=== PATIENT | female | born 1990 | race Caucasian/White ===

== ENCOUNTER 2019-01-05 22:04 | Observation (INO) ==
[2019-01-06 00:35] LABS: Bilirubin,Urine Moderate (Negative); Blood,Urine Negative (Negative); Clarity,Urine Cloudy (Clear); Glucose,Urine (UA) Normal (Normal); Ketones,Urine Trace mg/dL (Negative); Leukocyte Esterase,Urine Small (Negative); Nitrite,Urine Positive (Negative); Protein,Urine 100 mg/dL (Neg-Trace); Specific Gravity,Urine 1.027 (1.010-1.025)
[2019-01-06 00:37] LABS: Bacteria,Urine Many per hpf (None-Few); Squamous Epithelial Cell,Urine Many per lpf (None-Few); WBC,Urine 15-30 per hpf (0-3)
[2019-01-06 00:39] LABS: Color,Urine Amber (Yellow)
[2019-01-06 01:07] LABS: Calcium Oxalate Crystals,Urine Present; Hyaline Casts,Urine Moderate per lpf (None-Few); Mucus,Urine Many (Few)
--- NOTE | 2019-01-06 01:10 | Emergency Department Note ---
Disposition Clinical Impression: Hypokalemia, Elevated CK UTI (urinary tract infection) Qualifiers: Urinary tract infection type: site unspecified Hematuria presence: without hematuria Qualified Code(s): N39.0 - Urinary tract infection, site not specified Disposition: Admitted As Inpatient Condition: Good Time of Disposition: 05:14 General Adult HPI - General Chief complaint: ED General Medical Stated complaint: THOUGHT SHE TOOK METH/BUT DOESNT KNOW Time Seen by Provider: 01/05/19 23:23 Source: patient Nursing Notes Reviewed: Yes Vital Signs Reviewed: Yes - History of Present Illness HPI Narrative: 29-year-old female with reported history of methamphetamine abuse presents with concern with possible overdose. She arrived via squad. Patient states that she is a daily medications are, however squad gave her what she described as "fake" meth. Nursing reports pt felt cold. She states she was using to get high denies any SI. She denies any injury or trauma, recent illness. Pain Scale: 7 - Related Data Allergies Allergy/AdvReac Type Severity Reaction Status Date / Time No Known Allergies Allergy Verified 01/05/19 22:27 All systems ED: reviewed and negative except as stated. Review of Systems: As Per HPI Constitutional: Reports: as per HPI, fever Cardiovascular: Denies: chest pain, palpitations Respiratory: Denies: dyspnea Gastrointestinal: Denies: abdominal pain, nausea, vomiting Genitourinary: Reports: as per HPI, dysuria Musculoskeletal: Denies: back pain Integumentary: Denies: rash Neurological: Denies: headache, weakness, numbness, paresthesias Psychiatric: Denies: suicidal thoughts Endocrine: Denies: fatigue Hematological/Lymphatic: Denies: lymphadenopathy Allergic/Immunologic: Denies: facial swelling Past Medical History - Past Medical History Medical history: Reports: no medical history - Social History Smoking Status: Current every day smoker Drug use: Reports: methamphetamine, IV Drug Use Physical Exam - General Limitations: no limitations General appearance: in no apparent distress, other (Somnolent, but arousable) - Head Head exam: atraumatic, normocephalic - Eye Eye exam: Present: EOMI - Expanded Eye Exam Eyelids: bilateral: normal inspection Pupils: Bilateral: regular, round, reactive - ENT ENT exam: normal exam, normal oropharynx, mucous membranes moist - Neck Neck exam: Present: full ROM. Absent: lymphadenopathy - Chest Chest inspection: Absent: symmetric chest wall rise - Respiratory Respiratory exam: Absent: respiratory distress - Cardiovascular Cardiovascular exam: Present: normal rhythm, tachycardia - Abdominal Exam Abdominal exam: Present: soft, Non-Tender - Extremities Exam Extremities exam: Present: full ROM, normal capillary refill - Back Exam Back exam: Present: full ROM. Absent: CVA tenderness (R), CVA tenderness (L) - Neurological Exam Neurological exam: Present: alert - Psychiatric Psychiatric exam: Present: normal affect, normal mood - Skin Skin exam: Present: warm, dry, intact, normal color. Absent: rash, cyanosis, diaphoresis Course Course Narrative: Patient seen and examined. she appears somnolent, but is arousable. She is alert and oriented 3. Exam shows no evidence of trauma however she appears disheveled, dirty feet. Noted IV drug use on her forearms, do concerning signs of abscess. Tachycardic, EKG shows sinus tachycardia. Good oxygen saturation. Patient unsure of her substance that she utilizes. No squad report available at this time. Will plan for narcan, accuchek, and reassessment. - Reevaluation(s) Reevaluation #1: Accu-Chek still pending. Patient did receive 2 mg of intranasal Narcan, with no noted change. Repeat assessment shows that she does have an oral temperature 100.6. She remains tachycardic. Urinalysis shows evidence urinary tract infection. In discussion with patient she does mention that she has dysuria when I ask her. She denies any back pain, abdominal pain, nausea, vomiting UTI and vitals Concerning for sepsis, iv abx, fluids. We will plan for sepsis workup, CT head for somnolence. Patient discussed with attending Dr. Julianna Samayoa who agreed with workup, and also advised for CTA for evaluation septic emboli, and CT abd/pelvis for possible pyelnonephritis. She agreed with work up and dispo. Time: 01:26 Reevaluation #2: Head CT, CT unremarkable. CT abdomen and pelvis shows nonspecific fat stranding bilateral adrenal glands, nonobstructing nephrolithiasis. Vitals remained stable. She does have an elevated CPK, and significant urinary tract infection. Remained somnolent, but is arousable and answers questions quickly she is awake. I do not feel she will reliably take her medicatins as an outpatient. We will plan for admission for UTI, rhabdomyolysis, hypokalemia.. Time: 04:52 Reevaluation #3: Patient discussed with hospitalist Dr. Stearns, who agreed to review the chart and call me back. @05:13 Discussed again with hospitalist Dr. Stearns who agreed to accept patient for uti, elevated CK and , hypokalemia. Time: 05:00 Vital Signs Temperature 97.7 F 01/05/19 22:25 Pulse Rate 111 01/05/19 22:25 Respiratory Rate 18 01/05/19 22:25 Blood Pressure 109/60 01/05/19 22:25 O2 Sat by Pulse Oximetry 97 01/05/19 22:25 Temperature 99.6 F 01/06/19 06:18 Pulse Rate 92 01/06/19 06:18 Respiratory Rate 16 01/06/19 06:18 Blood Pressure 97/63 01/06/19 06:18 O2 Sat by Pulse Oximetry 98 01/06/19 06:18 Oxygen Delivery Oxygen Delivery Room Air Medical Decision Making - MDM Narrative Medical decision making narrative: Abdomen/Pelvis CT 01/06/19 01:21 IMPRESSION: There is nonspecific fat stranding surrounding both adrenal glands. Nonobstructing right-sided nephrolithiasis. D/ / Keena Yu MD / Keena Yu MD Interpreting Provider: Keena Yu MD Chest CTA 01/06/19 01:21 IMPRESSION: No evidence of pulmonary embolism or acute pulmonary abnormality. D/ / Keena Yu MD / Keena Yu MD Interpreting Provider: Keena Yu MD Head CT 01/06/19 01:21 IMPRESSION: No acute intracranial abnormality. D/ / Keena Yu MD / Keena Yu MD Interpreting Provider: Keena Yu MD Laboratory Tests 01/06/19 01/06/19 01/06/19 00:26 00:26 00:26 WBC RBC Hgb Hct MCV MCH MCHC RDW Plt Count MPV Immature Gran % Seg Neutrophils % Lymphocytes % Monocytes % Eosinophils % Basophils % Neutrophils # Lymphocytes # Monocytes # Eosinophils # Basophils # Sodium Potassium Chloride Carbon Dioxide BUN Creatinine Est GFR ( Amer) Est GFR (Non-Af Amer) BUN/Creatinine Ratio Glucose POC Glucose Calculated Osmolality Lactic Acid Calcium Total Bilirubin Direct Bilirubin Indirect Bilirubin AST ALT Alkaline Phosphatase Ammonia Creatine Kinase Serum Total Protein Albumin Globulin Albumin/Globulin Ratio Urine Color Kathy A Urine Clarity Cloudy A Urine pH 6.0 Ur Specific Constable 1.027 H Urine Protein 100 H Urine Glucose (UA) Normal Urine Ketones Trace H Urine Blood Negative Urine Nitrite Positive A Urine Bilirubin Moderate H Urine Urobilinogen 2.0 H Ur Leukocyte Esterase Small H Urine Microscopic RBC 3-5 H Urine Microscopic WBC 15-30 H Ur Squamous Epith Cells Many H Calcium Oxalate Crystal Present Urine Bacteria Many H Hyaline Casts Moderate H Urine Mucus Many H Ur Culture Indicated? YES A Urine Test Negative Urine Opiates Screen Positive H Ur Buprenorphine Scrn Negative Ur Barbiturates Screen Negative Ur Phencyclidine Scrn Negative Ur Amphetamines Screen Positive H U Benzodiazepines Scrn Negative Urine Cocaine Screen Negative U Marijuana (THC) Screen Negative Ur Drug Screen Interp See Below Ethyl Alcohol Hepatitis A IgM Ab Hep Bs Antigen Hep B Core IgM Ab 01/06/19 01/06/19 01/06/19 01:54 02:28 02:28 WBC 11.0 RBC 4.14 Hgb 12.6 Hct 37.9 MCV 91.5 MCH 30.4 MCHC 33.2 RDW 12.9 Plt Count 233 MPV 10.4 Immature Gran % 0.5 Seg Neutrophils % 94.4 Lymphocytes % 3.6 Monocytes % 1.2 Eosinophils % 0.2 Basophils % 0.1 Neutrophils # 10.4 H Lymphocytes # 0.4 L Monocytes # 0.1 Eosinophils # 0.0 Basophils # 0.0 Sodium 141 Potassium 2.8 L Chloride 108 H Carbon Dioxide 24 BUN 11 Creatinine 0.83 Est GFR ( Amer) > 60 Est GFR (Non-Af Amer) > 60 BUN/Creatinine Ratio 13 Glucose 97 POC Glucose 114 H Calculated Osmolality 291 Lactic Acid Calcium 8.9 Total Bilirubin 2.3 H Direct Bilirubin 1.5 H Indirect Bilirubin 0.8 AST 67 H ALT 67 H Alkaline Phosphatase 143 H Ammonia Creatine Kinase Serum Total Protein 6.5 Albumin 3.6 Globulin 2.9 Albumin/Globulin Ratio 1.2 Urine Color Urine Clarity Urine pH Ur Specific Constable Urine Protein Urine Glucose (UA) Urine Ketones Urine Blood Urine Nitrite Urine Bilirubin Urine Urobilinogen Ur Leukocyte Esterase Urine Microscopic RBC Urine Microscopic WBC Ur Squamous Epith Cells Calcium Oxalate Crystal Urine Bacteria Hyaline Casts Urine Mucus Ur Culture Indicated? Urine Test Urine Opiates Screen Ur Buprenorphine Scrn Ur Barbiturates Screen Ur Phencyclidine Scrn Ur Amphetamines Screen U Benzodiazepines Scrn Urine Cocaine Screen U Marijuana (THC) Screen Ur Drug Screen Interp Ethyl Alcohol Hepatitis A IgM Ab Hep Bs Antigen Hep B Core IgM Ab 01/06/19 01/06/19 01/06/19 02:28 02:28 02:28 WBC RBC Hgb Hct MCV MCH MCHC RDW Plt Count MPV Immature Gran % Seg Neutrophils % Lymphocytes % Monocytes % Eosinophils % Basophils % Neutrophils # Lymphocytes # Monocytes # Eosinophils # Basophils # Sodium Potassium Chloride Carbon Dioxide BUN Creatinine Est GFR ( Amer) Est GFR (Non-Af Amer) BUN/Creatinine Ratio Glucose POC Glucose Calculated Osmolality Lactic Acid 1.6 Calcium Total Bilirubin Direct Bilirubin Indirect Bilirubin AST ALT Alkaline Phosphatase Ammonia Creatine Kinase 552 H Serum Total Protein Albumin Globulin Albumin/Globulin Ratio Urine Color Urine Clarity Urine pH Ur Specific Constable Urine Protein Urine Glucose (UA) Urine Ketones Urine Blood Urine Nitrite Urine Bilirubin Urine Urobilinogen Ur Leukocyte Esterase Urine Microscopic RBC Urine Microscopic WBC Ur Squamous Epith Cells Calcium Oxalate Crystal Urine Bacteria Hyaline Casts Urine Mucus Ur Culture Indicated? Urine Test Urine Opiates Screen Ur Buprenorphine Scrn Ur Barbiturates Screen Ur Phencyclidine Scrn Ur Amphetamines Screen U Benzodiazepines Scrn Urine Cocaine Screen U Marijuana (THC) Screen Ur Drug Screen Interp Ethyl Alcohol Hepatitis A IgM Ab Nonreactive Hep Bs Antigen Nonreactive Hep B Core IgM Ab Nonreactive 01/06/19 01/06/19 04:19 04:19 WBC RBC Hgb Hct MCV MCH MCHC RDW Plt Count MPV Immature Gran % Seg Neutrophils % Lymphocytes % Monocytes % Eosinophils % Basophils % Neutrophils # Lymphocytes # Monocytes # Eosinophils # Basophils # Sodium Potassium Chloride Carbon Dioxide BUN Creatinine Est GFR ( Amer) Est GFR (Non-Af Amer) BUN/Creatinine Ratio Glucose POC Glucose Calculated Osmolality Lactic Acid Calcium Total Bilirubin Direct Bilirubin Indirect Bilirubin AST ALT Alkaline Phosphatase Ammonia 38 Creatine Kinase Serum Total Protein Albumin Globulin Albumin/Globulin Ratio Urine Color Urine Clarity Urine pH Ur Specific Constable Urine Protein Urine Glucose (UA) Urine Ketones Urine Blood Urine Nitrite Urine Bilirubin Urine Urobilinogen Ur Leukocyte Esterase Urine Microscopic RBC Urine Microscopic WBC Ur Squamous Epith Cells Calcium Oxalate Crystal Urine Bacteria Hyaline Casts Urine Mucus Ur Culture Indicated? Urine Test Urine Opiates Screen Ur Buprenorphine Scrn Ur Barbiturates Screen Ur Phencyclidine Scrn Ur Amphetamines Screen U Benzodiazepines Scrn Urine Cocaine Screen U Marijuana (THC) Screen Ur Drug Screen Interp Ethyl Alcohol < 10 Hepatitis A IgM Ab Hep Bs Antigen Hep B Core IgM Ab - Lab Data Lab results reviewed: Yes I reviewed the patient's lab results. Result diagrams: 01/06/19 02:28 01/06/19 02:28 Lab Results 01/06/19 01/06/19 01/06/19 Range/Units 00:26 00:26 00:26 WBC (4.3-11.1) K/mcL RBC (3.82-4.97) M/mcL Hgb (11.5-15.4) g/dL Hct (35.3-44.9) % MCV (83.0-100.0) fL MCH (28.0-33.3) pg MCHC (31.6-35.5) g/dL RDW (11.5-14.5) % Plt Count (140-400) K/mcL MPV (9.4-12.4) fL Immature Gran % (0-4) % Seg Neutrophils % % Lymphocytes % % Monocytes % % Eosinophils % % Basophils % % Neutrophils # (1.6-8.9) K/mcL Lymphocytes # (0.6-4.6) K/mcL Monocytes # (0.0-1.3) K/mcL Eosinophils # (0.0-0.6) K/mcL Basophils # (0.0-0.2) K/mcL Sodium (136-145) mEq/L Potassium (3.5-5.1) mEq/L Chloride (98-107) mEq/L Carbon Dioxide (23-29) mEq/L BUN (6-20) mg/dL Creatinine (0.60-1.20) mg/dL Est GFR ( Amer) (> 60) Est GFR (Non-Af Amer) (> 60) BUN/Creatinine Ratio (6-26) Glucose (70-105) mg/dL POC Glucose (70-99) mg/dL Calculated Osmolality (280-300) Lactic Acid (0.5-2.2) mmol/L Calcium (8.6-10.3) mg/dL Total Bilirubin (0.3-1.0) mg/dL Direct Bilirubin (0.0-0.2) mg/dL Indirect Bilirubin (0.0-1.2) mg/dL AST (13-39) Units/L ALT (7-52) Units/L Alkaline Phosphatase (34-104) Units/L Ammonia (16-53) mcmol/L Creatine Kinase (30-223) Units/L Serum Total Protein (6.4-8.9) g/dL Albumin (3.5-5.7) g/dL Globulin (2.4-3.5) g/dL Albumin/Globulin Ratio (1.1-2.2) Urine Color Kathy A (Yellow) Urine Clarity Cloudy A (Clear) Urine pH 6.0 (5.0-8.0) pH Units Ur Specific Constable 1.027 H (1.010-1.025) Urine Protein 100 H (Neg-Trace) mg/dL Urine Glucose (UA) Normal (Normal) mg/dL Urine Ketones Trace H (Negative) mg/dL Urine Blood Negative (Negative) Urine Nitrite Positive A (Negative) Urine Bilirubin Moderate H (Negative) Urine Urobilinogen 2.0 H (Normal) mg/dL Ur Leukocyte Esterase Small H (Negative) Urine Microscopic RBC 3-5 H (0-3) per hpf Urine Microscopic WBC 15-30 H (0-3) per hpf Ur Squamous Epith Cells Many H (None-Few) per lpf Calcium Oxalate Crystal Present Urine Bacteria Many H (None-Few) per hpf Hyaline Casts Moderate H (None-Few) per lpf Urine Mucus Many H (Few) Ur Culture Indicated? YES A (NO) Urine Test Negative (Negative) Urine Opiates Screen Positive H (Fxdtiq=107) ng/mL Ur Buprenorphine Scrn Negative (Cutoff=5) ng/mL Ur Barbiturates Screen Negative (Oqobqd=207) ng/mL Ur Phencyclidine Scrn Negative (Cutoff=25) ng/mL Ur Amphetamines Screen Positive H (Iblhhs=2621) ng/mL U Benzodiazepines Scrn Negative (Qlealn=804) ng/mL Urine Cocaine Screen Negative (Cutoff= 300) ng/mL U Marijuana (THC) Screen Negative (Cutoff = 50) ng/mL Ur Drug Screen Interp See Below Ethyl Alcohol (Less than 10) mg/dL Hepatitis A IgM Ab (Nonreactive) Hep Bs Antigen (Nonreactive) Hep B Core IgM Ab (Nonreactive) Hepatitis C Ab Screen (Nonreactive) 01/06/19 01/06/19 01/06/19 Range/Units 01:54 02:28 02:28 WBC 11.0 (4.3-11.1) K/mcL RBC 4.14 (3.82-4.97) M/mcL Hgb 12.6 (11.5-15.4) g/dL Hct 37.9 (35.3-44.9) % MCV 91.5 (83.0-100.0) fL MCH 30.4 (28.0-33.3) pg MCHC 33.2 (31.6-35.5) g/dL RDW 12.9 (11.5-14.5) % Plt Count 233 (140-400) K/mcL MPV 10.4 (9.4-12.4) fL Immature Gran % 0.5 (0-4) % Seg Neutrophils % 94.4 % Lymphocytes % 3.6 % Monocytes % 1.2 % Eosinophils % 0.2 % Basophils % 0.1 % Neutrophils # 10.4 H (1.6-8.9) K/mcL Lymphocytes # 0.4 L (0.6-4.6) K/mcL Monocytes # 0.1 (0.0-1.3) K/mcL Eosinophils # 0.0 (0.0-0.6) K/mcL Basophils # 0.0 (0.0-0.2) K/mcL Sodium 141 (136-145) mEq/L Potassium 2.8 L (3.5-5.1) mEq/L Chloride 108 H (98-107) mEq/L Carbon Dioxide 24 (23-29) mEq/L BUN 11 (6-20) mg/dL Creatinine 0.83 (0.60-1.20) mg/dL Est GFR ( Amer) > 60 (> 60) Est GFR (Non-Af Amer) > 60 (> 60) BUN/Creatinine Ratio 13 (6-26) Glucose 97 (70-105) mg/dL POC Glucose 114 H (70-99) mg/dL Calculated Osmolality 291 (280-300) Lactic Acid (0.5-2.2) mmol/L Calcium 8.9 (8.6-10.3) mg/dL Total Bilirubin 2.3 H (0.3-1.0) mg/dL Direct Bilirubin 1.5 H (0.0-0.2) mg/dL Indirect Bilirubin 0.8 (0.0-1.2) mg/dL AST 67 H (13-39) Units/L ALT 67 H (7-52) Units/L Alkaline Phosphatase 143 H (34-104) Units/L Ammonia (16-53) mcmol/L Creatine Kinase (30-223) Units/L Serum Total Protein 6.5 (6.4-8.9) g/dL Albumin 3.6 (3.5-5.7) g/dL Globulin 2.9 (2.4-3.5) g/dL Albumin/Globulin Ratio 1.2 (1.1-2.2) Urine Color (Yellow) Urine Clarity (Clear) Urine pH (5.0-8.0) pH Units Ur Specific Constable (1.010-1.025) Urine Protein (Neg-Trace) mg/dL Urine Glucose (UA) (Normal) mg/dL Urine Ketones (Negative) mg/dL Urine Blood (Negative) Urine Nitrite (Negative) Urine Bilirubin (Negative) Urine Urobilinogen (Normal) mg/dL Ur Leukocyte Esterase (Negative) Urine Microscopic RBC (0-3) per hpf Urine Microscopic WBC (0-3) per hpf Ur Squamous Epith Cells (None-Few) per lpf Calcium Oxalate Crystal Urine Bacteria (None-Few) per hpf Hyaline Casts (None-Few) per lpf Urine Mucus (Few) Ur Culture Indicated? (NO) Urine Test (Negative) Urine Opiates Screen (Egdkdh=612) ng/mL Ur Buprenorphine Scrn (Cutoff=5) ng/mL Ur Barbiturates Screen (Hmoyls=689) ng/mL Ur Phencyclidine Scrn (Cutoff=25) ng/mL Ur Amphetamines Screen (Pbanwm=8599) ng/mL U Benzodiazepines Scrn (Uxwfhd=302) ng/mL Urine Cocaine Screen (Cutoff= 300) ng/mL U Marijuana (THC) Screen (Cutoff = 50) ng/mL Ur Drug Screen Interp Ethyl Alcohol (Less than 10) mg/dL Hepatitis A IgM Ab (Nonreactive) Hep Bs Antigen (Nonreactive) Hep B Core IgM Ab (Nonreactive) Hepatitis C Ab Screen (Nonreactive) 01/06/19 01/06/19 01/06/19 Range/Units 02:28 02:28 02:28 WBC (4.3-11.1) K/mcL RBC (3.82-4.97) M/mcL Hgb (11.5-15.4) g/dL Hct (35.3-44.9) % MCV (83.0-100.0) fL MCH (28.0-33.3) pg MCHC (31.6-35.5) g/dL RDW (11.5-14.5) % Plt Count (140-400) K/mcL MPV (9.4-12.4) fL Immature Gran % (0-4) % Seg Neutrophils % % Lymphocytes % % Monocytes % % Eosinophils % % Basophils % % Neutrophils # (1.6-8.9) K/mcL Lymphocytes # (0.6-4.6) K/mcL Monocytes # (0.0-1.3) K/mcL Eosinophils # (0.0-0.6) K/mcL Basophils # (0.0-0.2) K/mcL Sodium (136-145) mEq/L Potassium (3.5-5.1) mEq/L Chloride (98-107) mEq/L Carbon Dioxide (23-29) mEq/L BUN (6-20) mg/dL Creatinine (0.60-1.20) mg/dL Est GFR ( Amer) (> 60) Est GFR (Non-Af Amer) (> 60) BUN/Creatinine Ratio (6-26) Glucose (70-105) mg/dL POC Glucose (70-99) mg/dL Calculated Osmolality (280-300) Lactic Acid 1.6 (0.5-2.2) mmol/L Calcium (8.6-10.3) mg/dL Total Bilirubin (0.3-1.0) mg/dL Direct Bilirubin (0.0-0.2) mg/dL Indirect Bilirubin (0.0-1.2) mg/dL AST (13-39) Units/L ALT (7-52) Units/L Alkaline Phosphatase (34-104) Units/L Ammonia (16-53) mcmol/L Creatine Kinase 552 H (30-223) Units/L Serum Total Protein (6.4-8.9) g/dL Albumin (3.5-5.7) g/dL Globulin (2.4-3.5) g/dL Albumin/Globulin Ratio (1.1-2.2) Urine Color (Yellow) Urine Clarity (Clear) Urine pH (5.0-8.0) pH Units Ur Specific Constable (1.010-1.025) Urine Protein (Neg-Trace) mg/dL Urine Glucose (UA) (Normal) mg/dL Urine Ketones (Negative) mg/dL Urine Blood (Negative) Urine Nitrite (Negative) Urine Bilirubin (Negative) Urine Urobilinogen (Normal) mg/dL Ur Leukocyte Esterase (Negative) Urine Microscopic RBC (0-3) per hpf Urine Microscopic WBC (0-3) per hpf Ur Squamous Epith Cells (None-Few) per lpf Calcium Oxalate Crystal Urine Bacteria (None-Few) per hpf Hyaline Casts (None-Few) per lpf Urine Mucus (Few) Ur Culture Indicated? (NO) Urine Test (Negative) Urine Opiates Screen (Euwzyq=800) ng/mL Ur Buprenorphine Scrn (Cutoff=5) ng/mL Ur Barbiturates Screen (Bjdcwh=220) ng/mL Ur Phencyclidine Scrn (Cutoff=25) ng/mL Ur Amphetamines Screen (Zlofda=7736) ng/mL U Benzodiazepines Scrn (Pfwiht=324) ng/mL Urine Cocaine Screen (Cutoff= 300) ng/mL U Marijuana (THC) Screen (Cutoff = 50) ng/mL Ur Drug Screen Interp Ethyl Alcohol (Less than 10) mg/dL Hepatitis A IgM Ab Nonreactive (Nonreactive) Hep Bs Antigen Nonreactive (Nonreactive) Hep B Core IgM Ab Nonreactive (Nonreactive) Hepatitis C Ab Screen Reactive H (Nonreactive) 01/06/19 01/06/19 Range/Units 04:19 04:19 WBC (4.3-11.1) K/mcL RBC (3.82-4.97) M/mcL Hgb (11.5-15.4) g/dL Hct (35.3-44.9) % MCV (83.0-100.0) fL MCH (28.0-33.3) pg MCHC (31.6-35.5) g/dL RDW (11.5-14.5) % Plt Count (140-400) K/mcL MPV (9.4-12.4) fL Immature Gran % (0-4) % Seg Neutrophils % % Lymphocytes % % Monocytes % % Eosinophils % % Basophils % % Neutrophils # (1.6-8.9) K/mcL Lymphocytes # (0.6-4.6) K/mcL Monocytes # (0.0-1.3) K/mcL Eosinophils # (0.0-0.6) K/mcL Basophils # (0.0-0.2) K/mcL Sodium (136-145) mEq/L Potassium (3.5-5.1) mEq/L Chloride (98-107) mEq/L Carbon Dioxide (23-29) mEq/L BUN (6-20) mg/dL Creatinine (0.60-1.20) mg/dL Est GFR ( Amer) (> 60) Est GFR (Non-Af Amer) (> 60) BUN/Creatinine Ratio (6-26) Glucose (70-105) mg/dL POC Glucose (70-99) mg/dL Calculated Osmolality (280-300) Lactic Acid (0.5-2.2) mmol/L Calcium (8.6-10.3) mg/dL Total Bilirubin (0.3-1.0) mg/dL Direct Bilirubin (0.0-0.2) mg/dL Indirect Bilirubin (0.0-1.2) mg/dL AST (13-39) Units/L ALT (7-52) Units/L Alkaline Phosphatase (34-104) Units/L Ammonia 38 (16-53) mcmol/L Creatine Kinase (30-223) Units/L Serum Total Protein (6.4-8.9) g/dL Albumin (3.5-5.7) g/dL Globulin (2.4-3.5) g/dL Albumin/Globulin Ratio (1.1-2.2) Urine Color (Yellow) Urine Clarity (Clear) Urine pH (5.0-8.0) pH Units Ur Specific Constable (1.010-1.025) Urine Protein (Neg-Trace) mg/dL Urine Glucose (UA) (Normal) mg/dL Urine Ketones (Negative) mg/dL Urine Blood (Negative) Urine Nitrite (Negative) Urine Bilirubin (Negative) Urine Urobilinogen (Normal) mg/dL Ur Leukocyte Esterase (Negative) Urine Microscopic RBC (0-3) per hpf Urine Microscopic WBC (0-3) per hpf Ur Squamous Epith Cells (None-Few) per lpf Calcium Oxalate Crystal Urine Bacteria (None-Few) per hpf Hyaline Casts (None-Few) per lpf Urine Mucus (Few) Ur Culture Indicated? (NO) Urine Test (Negative) Urine Opiates Screen (Mevhxj=011) ng/mL Ur Buprenorphine Scrn (Cutoff=5) ng/mL Ur Barbiturates Screen (Nuedaq=151) ng/mL Ur Phencyclidine Scrn (Cutoff=25) ng/mL Ur Amphetamines Screen (Wjbirv=1026) ng/mL U Benzodiazepines Scrn (Ncnakz=406) ng/mL Urine Cocaine Screen (Cutoff= 300) ng/mL U Marijuana (THC) Screen (Cutoff = 50) ng/mL Ur Drug Screen Interp Ethyl Alcohol < 10 (Less than 10) mg/dL Hepatitis A IgM Ab (Nonreactive) Hep Bs Antigen (Nonreactive) Hep B Core IgM Ab (Nonreactive) Hepatitis C Ab Screen (Nonreactive) - Radiology Data Radiology results reviewed: Yes I reviewed the patient's radiology results. - EKG Data EKG #1 EKG attestation: Yes I reviewed and interpreted this EKG. EKG shows normal: sinus rhythm Rate: tachycardia Rhythm: NSR Kent/QRS: normal When compared to previous EKG there are: previous EKG unavailable Interpretation: no acute changes
[2019-01-06] MEDS ORDERED: 0.9 % Sodium Chloride 1,000 ML IVC ONE ×3 (01:19→04:45)
[2019-01-06] MEDS ORDERED: Isovue-370 500 ML BOTTLE IVP ONE (01:21)
[2019-01-06 01:22] LABS: Amphetamine Screen,Urine Positive ng/mL (Cutoff=1000); Barbiturate Screen,Urine Negative ng/mL (Cutoff=200); Benzodiazepines Screen,Urine Negative ng/mL (Cutoff=200); Cannabinoid Screen,Urine Negative ng/mL (Cutoff = 50); Cocaine Screen,Urine Negative ng/mL (Cutoff= 300); Opiate Screen,Urine Positive ng/mL (Cutoff=300); Phencyclidine Screen,Urine Negative ng/mL (Cutoff=25)
[2019-01-06] MEDS ORDERED: cefTRIAXone 1,000 MG in Water for inj. (sterile) 10 ML IVP ONE (01:24)
[2019-01-06 02:52] LABS: Basophils % 0.1 %; Eosinophils % 0.2 %; Hematocrit 37.9 % (35.3-44.9); Hemoglobin 12.6 g/dL (11.5-15.4); Immature Granulocytes % 0.5 % (0-4); Lymphocytes # 0.4 K/mcL (0.6-4.6); Lymphocytes % 3.6 %; Mean Corpuscular HGB Conc 33.2 g/dL (31.6-35.5); Mean Corpuscular Hemoglobin 30.4 pg (28.0-33.3); Mean Corpuscular Volume 91.5 fL (83.0-100.0); Mean Platelet Volume 10.4 fL (9.4-12.4); Monocytes # 0.1 K/mcL (0.0-1.3); Monocytes % 1.2 %; Neutrophils # 10.4 K/mcL (1.6-8.9); Platelet Count 233 K/mcL (140-400); Red Blood Count 4.14 M/mcL (3.82-4.97); Red Cell Distribution Width 12.9 % (11.5-14.5); Segmented Neutrophils % 94.4 %
[2019-01-06 03:05] LABS: Alanine Aminotransferase 67 Units/L (7-52); Albumin 3.6 g/dL (3.5-5.7); Albumin/Globulin Ratio 1.2 (1.1-2.2); Alkaline Phosphatase 143 Units/L (34-104); Aspartate Amino Transferase 67 Units/L (13-39); BUN/Creatinine Ratio 13 (6-26); Bilirubin,Direct 1.5 mg/dL (0.0-0.2); Bilirubin,Indirect 0.8 mg/dL (0.0-1.2); Bilirubin,Total 2.3 mg/dL (0.3-1.0); Blood Urea Nitrogen 11 mg/dL (6-20); Calcium 8.9 mg/dL (8.6-10.3); Carbon Dioxide 24 mEq/L (23-29); Chloride 108 mEq/L (98-107); Globulin 2.9 g/dL (2.4-3.5); Glucose 97 mg/dL (70-105); Osmolality,Calculated 291 (280-300); Potassium 2.8 mEq/L (3.5-5.1); Sodium 141 mEq/L (136-145); Total Protein 6.5 g/dL (6.4-8.9); eGFR For African Americans > 60 (> 60); eGFR For Non-African Americans > 60 (> 60)
[2019-01-06] MEDS ORDERED: Potassium Chloride 40 MEQ, Lidocaine 1% 2 ML in 0.9 % Sodium Chloride 500 ML IVPB ONE ×2 (03:13→08:24)
[2019-01-06 03:58] LABS: Hepatitis B Surface Antigen Nonreactive (Nonreactive)
[2019-01-06 04:26] LABS: Hepatitis B Core IgM Nonreactive (Nonreactive)
[2019-01-06 04:28] LABS: Hepatitis A Antibody IgM Nonreactive (Nonreactive)
[2019-01-06 04:53] LABS: Ethanol < 10 mg/dL (Less than 10)
--- NOTE | 2019-01-06 05:03 | Emergency Department Note ---
Disposition Clinical Impression: Hypokalemia UTI (urinary tract infection) Qualifiers: Urinary tract infection type: site unspecified Hematuria presence: without hematuria Qualified Code(s): N39.0 - Urinary tract infection, site not specified Disposition: Admitted As Inpatient Condition: Good Referrals: NONE,PCP [Primary Care Provider] - Forms: ED Satisfaction Letter, Work/School Release Time of Disposition: 05:05 General Adult HPI - General Chief complaint: ED General Medical Stated complaint: THOUGHT SHE TOOK METH/BUT DOESNT KNOW Time Seen by Provider: 01/05/19 23:23 Source: patient Limitations: no limitations - History of Present Illness Pain Scale: 7 - Related Data Allergies Allergy/AdvReac Type Severity Reaction Status Date / Time No Known Allergies Allergy Verified 01/05/19 22:27 Constitutional: Reports: as per HPI, fever Cardiovascular: Denies: chest pain, palpitations Respiratory: Denies: dyspnea Gastrointestinal: Denies: abdominal pain, nausea, vomiting Genitourinary: Reports: as per HPI, dysuria Musculoskeletal: Denies: back pain Integumentary: Denies: rash Neurological: Denies: headache, weakness, numbness, paresthesias Psychiatric: Denies: suicidal thoughts Endocrine: Denies: fatigue Hematological/Lymphatic: Denies: lymphadenopathy Allergic/Immunologic: Denies: facial swelling Past Medical History - Past Medical History Medical history: Reports: no medical history - Social History Smoking Status: Current every day smoker Drug use: Reports: methamphetamine, IV Drug Use Physical Exam - General Limitations: no limitations General appearance: in no apparent distress, other (Somnolent, but arousable) Course Vital Signs Temperature 97.7 F 01/05/19 22:25 Pulse Rate 111 01/05/19 22:25 Respiratory Rate 18 01/05/19 22:25 Blood Pressure 109/60 01/05/19 22:25 O2 Sat by Pulse Oximetry 97 01/05/19 22:25 Temperature 100.6 F H 01/06/19 01:14 Pulse Rate 94 01/06/19 04:04 Respiratory Rate 16 01/06/19 04:04 Blood Pressure 111/78 01/06/19 04:04 O2 Sat by Pulse Oximetry 100 01/06/19 04:04 Oxygen Delivery Oxygen Delivery Room Air Medical Decision Making - Lab Data Result diagrams: 01/06/19 02:28 01/06/19 02:28 Lab Results 01/06/19 01/06/19 01/06/19 Range/Units 00:26 00:26 00:26 WBC (4.3-11.1) K/mcL RBC (3.82-4.97) M/mcL Hgb (11.5-15.4) g/dL Hct (35.3-44.9) % MCV (83.0-100.0) fL MCH (28.0-33.3) pg MCHC (31.6-35.5) g/dL RDW (11.5-14.5) % Plt Count (140-400) K/mcL MPV (9.4-12.4) fL Immature Gran % (0-4) % Seg Neutrophils % % Lymphocytes % % Monocytes % % Eosinophils % % Basophils % % Neutrophils # (1.6-8.9) K/mcL Lymphocytes # (0.6-4.6) K/mcL Monocytes # (0.0-1.3) K/mcL Eosinophils # (0.0-0.6) K/mcL Basophils # (0.0-0.2) K/mcL Sodium (136-145) mEq/L Potassium (3.5-5.1) mEq/L Chloride (98-107) mEq/L Carbon Dioxide (23-29) mEq/L BUN (6-20) mg/dL Creatinine (0.60-1.20) mg/dL Est GFR ( Amer) (> 60) Est GFR (Non-Af Amer) (> 60) BUN/Creatinine Ratio (6-26) Glucose (70-105) mg/dL POC Glucose (70-99) mg/dL Calculated Osmolality (280-300) Lactic Acid (0.5-2.2) mmol/L Calcium (8.6-10.3) mg/dL Total Bilirubin (0.3-1.0) mg/dL Direct Bilirubin (0.0-0.2) mg/dL Indirect Bilirubin (0.0-1.2) mg/dL AST (13-39) Units/L ALT (7-52) Units/L Alkaline Phosphatase (34-104) Units/L Ammonia (16-53) mcmol/L Creatine Kinase (30-223) Units/L Serum Total Protein (6.4-8.9) g/dL Albumin (3.5-5.7) g/dL Globulin (2.4-3.5) g/dL Albumin/Globulin Ratio (1.1-2.2) Urine Color Kathy A (Yellow) Urine Clarity Cloudy A (Clear) Urine pH 6.0 (5.0-8.0) pH Units Ur Specific [place] 1.027 H (1.010-1.025) Urine Protein 100 H (Neg-Trace) mg/dL Urine Glucose (UA) Normal (Normal) mg/dL Urine Ketones Trace H (Negative) mg/dL Urine Blood Negative (Negative) Urine Nitrite Positive A (Negative) Urine Bilirubin Moderate H (Negative) Urine Urobilinogen 2.0 H (Normal) mg/dL Ur Leukocyte Esterase Small H (Negative) Urine Microscopic RBC 3-5 H (0-3) per hpf Urine Microscopic WBC 15-30 H (0-3) per hpf Ur Squamous Epith Cells Many H (None-Few) per lpf Calcium Oxalate Crystal Present Urine Bacteria Many H (None-Few) per hpf Hyaline Casts Moderate H (None-Few) per lpf Urine Mucus Many H (Few) Ur Culture Indicated? YES A (NO) Urine Test Negative (Negative) Urine Opiates Screen Positive H (Ojrzld=923) ng/mL Ur Buprenorphine Scrn Negative (Cutoff=5) ng/mL Ur Barbiturates Screen Negative (Bgmyls=827) ng/mL Ur Phencyclidine Scrn Negative (Cutoff=25) ng/mL Ur Amphetamines Screen Positive H (Penyzi=8778) ng/mL U Benzodiazepines Scrn Negative (Yqcnvu=905) ng/mL Urine Cocaine Screen Negative (Cutoff= 300) ng/mL U Marijuana (THC) Screen Negative (Cutoff = 50) ng/mL Ur Drug Screen Interp See Below Ethyl Alcohol (Less than 10) mg/dL Hepatitis A IgM Ab (Nonreactive) Hep Bs Antigen (Nonreactive) Hep B Core IgM Ab (Nonreactive) 01/06/19 01/06/19 01/06/19 Range/Units 01:54 02:28 02:28 WBC 11.0 (4.3-11.1) K/mcL RBC 4.14 (3.82-4.97) M/mcL Hgb 12.6 (11.5-15.4) g/dL Hct 37.9 (35.3-44.9) % MCV 91.5 (83.0-100.0) fL MCH 30.4 (28.0-33.3) pg MCHC 33.2 (31.6-35.5) g/dL RDW 12.9 (11.5-14.5) % Plt Count 233 (140-400) K/mcL MPV 10.4 (9.4-12.4) fL Immature Gran % 0.5 (0-4) % Seg Neutrophils % 94.4 % Lymphocytes % 3.6 % Monocytes % 1.2 % Eosinophils % 0.2 % Basophils % 0.1 % Neutrophils # 10.4 H (1.6-8.9) K/mcL Lymphocytes # 0.4 L (0.6-4.6) K/mcL Monocytes # 0.1 (0.0-1.3) K/mcL Eosinophils # 0.0 (0.0-0.6) K/mcL Basophils # 0.0 (0.0-0.2) K/mcL Sodium 141 (136-145) mEq/L Potassium 2.8 L (3.5-5.1) mEq/L Chloride 108 H (98-107) mEq/L Carbon Dioxide 24 (23-29) mEq/L BUN 11 (6-20) mg/dL Creatinine 0.83 (0.60-1.20) mg/dL Est GFR ( Amer) > 60 (> 60) Est GFR (Non-Af Amer) > 60 (> 60) BUN/Creatinine Ratio 13 (6-26) Glucose 97 (70-105) mg/dL POC Glucose 114 H (70-99) mg/dL Calculated Osmolality 291 (280-300) Lactic Acid (0.5-2.2) mmol/L Calcium 8.9 (8.6-10.3) mg/dL Total Bilirubin 2.3 H (0.3-1.0) mg/dL Direct Bilirubin 1.5 H (0.0-0.2) mg/dL Indirect Bilirubin 0.8 (0.0-1.2) mg/dL AST 67 H (13-39) Units/L ALT 67 H (7-52) Units/L Alkaline Phosphatase 143 H (34-104) Units/L Ammonia (16-53) mcmol/L Creatine Kinase (30-223) Units/L Serum Total Protein 6.5 (6.4-8.9) g/dL Albumin 3.6 (3.5-5.7) g/dL Globulin 2.9 (2.4-3.5) g/dL Albumin/Globulin Ratio 1.2 (1.1-2.2) Urine Color (Yellow) Urine Clarity (Clear) Urine pH (5.0-8.0) pH Units Ur Specific [place] (1.010-1.025) Urine Protein (Neg-Trace) mg/dL Urine Glucose (UA) (Normal) mg/dL Urine Ketones (Negative) mg/dL Urine Blood (Negative) Urine Nitrite (Negative) Urine Bilirubin (Negative) Urine Urobilinogen (Normal) mg/dL Ur Leukocyte Esterase (Negative) Urine Microscopic RBC (0-3) per hpf Urine Microscopic WBC (0-3) per hpf Ur Squamous Epith Cells (None-Few) per lpf Calcium Oxalate Crystal Urine Bacteria (None-Few) per hpf Hyaline Casts (None-Few) per lpf Urine Mucus (Few) Ur Culture Indicated? (NO) Urine Test (Negative) Urine Opiates Screen (Yhagso=774) ng/mL Ur Buprenorphine Scrn (Cutoff=5) ng/mL Ur Barbiturates Screen (Uouggk=323) ng/mL Ur Phencyclidine Scrn (Cutoff=25) ng/mL Ur Amphetamines Screen (Rlnawg=1209) ng/mL U Benzodiazepines Scrn (Zjmmxb=871) ng/mL Urine Cocaine Screen (Cutoff= 300) ng/mL U Marijuana (THC) Screen (Cutoff = 50) ng/mL Ur Drug Screen Interp Ethyl Alcohol (Less than 10) mg/dL Hepatitis A IgM Ab (Nonreactive) Hep Bs Antigen (Nonreactive) Hep B Core IgM Ab (Nonreactive) 01/06/19 01/06/19 01/06/19 Range/Units 02:28 02:28 02:28 WBC (4.3-11.1) K/mcL RBC (3.82-4.97) M/mcL Hgb (11.5-15.4) g/dL Hct (35.3-44.9) % MCV (83.0-100.0) fL MCH (28.0-33.3) pg MCHC (31.6-35.5) g/dL RDW (11.5-14.5) % Plt Count (140-400) K/mcL MPV (9.4-12.4) fL Immature Gran % (0-4) % Seg Neutrophils % % Lymphocytes % % Monocytes % % Eosinophils % % Basophils % % Neutrophils # (1.6-8.9) K/mcL Lymphocytes # (0.6-4.6) K/mcL Monocytes # (0.0-1.3) K/mcL Eosinophils # (0.0-0.6) K/mcL Basophils # (0.0-0.2) K/mcL Sodium (136-145) mEq/L Potassium (3.5-5.1) mEq/L Chloride (98-107) mEq/L Carbon Dioxide (23-29) mEq/L BUN (6-20) mg/dL Creatinine (0.60-1.20) mg/dL Est GFR ( Amer) (> 60) Est GFR (Non-Af Amer) (> 60) BUN/Creatinine Ratio (6-26) Glucose (70-105) mg/dL POC Glucose (70-99) mg/dL Calculated Osmolality (280-300) Lactic Acid 1.6 (0.5-2.2) mmol/L Calcium (8.6-10.3) mg/dL Total Bilirubin (0.3-1.0) mg/dL Direct Bilirubin (0.0-0.2) mg/dL Indirect Bilirubin (0.0-1.2) mg/dL AST (13-39) Units/L ALT (7-52) Units/L Alkaline Phosphatase (34-104) Units/L Ammonia (16-53) mcmol/L Creatine Kinase 552 H (30-223) Units/L Serum Total Protein (6.4-8.9) g/dL Albumin (3.5-5.7) g/dL Globulin (2.4-3.5) g/dL Albumin/Globulin Ratio (1.1-2.2) Urine Color (Yellow) Urine Clarity (Clear) Urine pH (5.0-8.0) pH Units Ur Specific [place] (1.010-1.025) Urine Protein (Neg-Trace) mg/dL Urine Glucose (UA) (Normal) mg/dL Urine Ketones (Negative) mg/dL Urine Blood (Negative) Urine Nitrite (Negative) Urine Bilirubin (Negative) Urine Urobilinogen (Normal) mg/dL Ur Leukocyte Esterase (Negative) Urine Microscopic RBC (0-3) per hpf Urine Microscopic WBC (0-3) per hpf Ur Squamous Epith Cells (None-Few) per lpf Calcium Oxalate Crystal Urine Bacteria (None-Few) per hpf Hyaline Casts (None-Few) per lpf Urine Mucus (Few) Ur Culture Indicated? (NO) Urine Test (Negative) Urine Opiates Screen (Uyoqcm=545) ng/mL Ur Buprenorphine Scrn (Cutoff=5) ng/mL Ur Barbiturates Screen (Rygokj=638) ng/mL Ur Phencyclidine Scrn (Cutoff=25) ng/mL Ur Amphetamines Screen (Rxgrgx=8180) ng/mL U Benzodiazepines Scrn (Dogpfy=592) ng/mL Urine Cocaine Screen (Cutoff= 300) ng/mL U Marijuana (THC) Screen (Cutoff = 50) ng/mL Ur Drug Screen Interp Ethyl Alcohol (Less than 10) mg/dL Hepatitis A IgM Ab Nonreactive (Nonreactive) Hep Bs Antigen Nonreactive (Nonreactive) Hep B Core IgM Ab Nonreactive (Nonreactive) 01/06/19 01/06/19 Range/Units 04:19 04:19 WBC (4.3-11.1) K/mcL RBC (3.82-4.97) M/mcL Hgb (11.5-15.4) g/dL Hct (35.3-44.9) % MCV (83.0-100.0) fL MCH (28.0-33.3) pg MCHC (31.6-35.5) g/dL RDW (11.5-14.5) % Plt Count (140-400) K/mcL MPV (9.4-12.4) fL Immature Gran % (0-4) % Seg Neutrophils % % Lymphocytes % % Monocytes % % Eosinophils % % Basophils % % Neutrophils # (1.6-8.9) K/mcL Lymphocytes # (0.6-4.6) K/mcL Monocytes # (0.0-1.3) K/mcL Eosinophils # (0.0-0.6) K/mcL Basophils # (0.0-0.2) K/mcL Sodium (136-145) mEq/L Potassium (3.5-5.1) mEq/L Chloride (98-107) mEq/L Carbon Dioxide (23-29) mEq/L BUN (6-20) mg/dL Creatinine (0.60-1.20) mg/dL Est GFR ( Amer) (> 60) Est GFR (Non-Af Amer) (> 60) BUN/Creatinine Ratio (6-26) Glucose (70-105) mg/dL POC Glucose (70-99) mg/dL Calculated Osmolality (280-300) Lactic Acid (0.5-2.2) mmol/L Calcium (8.6-10.3) mg/dL Total Bilirubin (0.3-1.0) mg/dL Direct Bilirubin (0.0-0.2) mg/dL Indirect Bilirubin (0.0-1.2) mg/dL AST (13-39) Units/L ALT (7-52) Units/L Alkaline Phosphatase (34-104) Units/L Ammonia 38 (16-53) mcmol/L Creatine Kinase (30-223) Units/L Serum Total Protein (6.4-8.9) g/dL Albumin (3.5-5.7) g/dL Globulin (2.4-3.5) g/dL Albumin/Globulin Ratio (1.1-2.2) Urine Color (Yellow) Urine Clarity (Clear) Urine pH (5.0-8.0) pH Units Ur Specific [place] (1.010-1.025) Urine Protein (Neg-Trace) mg/dL Urine Glucose (UA) (Normal) mg/dL Urine Ketones (Negative) mg/dL Urine Blood (Negative) Urine Nitrite (Negative) Urine Bilirubin (Negative) Urine Urobilinogen (Normal) mg/dL Ur Leukocyte Esterase (Negative) Urine Microscopic RBC (0-3) per hpf Urine Microscopic WBC (0-3) per hpf Ur Squamous Epith Cells (None-Few) per lpf Calcium Oxalate Crystal Urine Bacteria (None-Few) per hpf Hyaline Casts (None-Few) per lpf Urine Mucus (Few) Ur Culture Indicated? (NO) Urine Test (Negative) Urine Opiates Screen (Kxhypa=206) ng/mL Ur Buprenorphine Scrn (Cutoff=5) ng/mL Ur Barbiturates Screen (Uhnxfs=326) ng/mL Ur Phencyclidine Scrn (Cutoff=25) ng/mL Ur Amphetamines Screen (Whcmxb=4963) ng/mL U Benzodiazepines Scrn (Kaguam=423) ng/mL Urine Cocaine Screen (Cutoff= 300) ng/mL U Marijuana (THC) Screen (Cutoff = 50) ng/mL Ur Drug Screen Interp Ethyl Alcohol < 10 (Less than 10) mg/dL Hepatitis A IgM Ab (Nonreactive) Hep Bs Antigen (Nonreactive) Hep B Core IgM Ab (Nonreactive) Attestation Statement - Attestation Attestation: I reviewed the residents documentation and agree with the residents assessment and plan of care. I have personally had face to face time with the patient. (Brief History, Brief Exam, and MDM) I personally supervised and was present for the lopez/critical portions of the following procedures completed by the resident: (add procedures performed here). 29 year old female presents to the eD with complaints of confusion and thinks she may taken fake meth. Simona appaers to have meets SIRS criteria and the source likely being UTI, we have ruled out septic emboli and pyelnephritis, She does have elecated tbili with LFTs although ABCT does not show any galbladder pathology at this time. WE have started rocephin and she also has an elevated CK of 550s. WE will admit to medicine for UTI and early rhabdo. She does not have a PCP and is otherwise arouseable but somnolent likely from her meth binge. Simona I do not believe will contnue her ABX therapy at home and will come back worse if discharged home.
[2019-01-06 05:38] LABS: Hepatitis C Virus Antibody Reactive (Nonreactive)
[2019-01-06 06:32] VITALS: BP 97/63
[2019-01-06] MEDS ORDERED: Ondansetron 4 MG/2 ML VIAL IVP PRN (08:23)
[2019-01-06] MEDS ORDERED: Naloxone 0.4 MG/ML INJ IVP PRN (08:23)
[2019-01-06] MEDS ORDERED: 0.9 % Sodium Chloride 1,000 ML IVC SCH (08:30)
--- NOTE | 2019-01-06 08:34 | Internal Med History&Physical ---
<Tommy Hargrove - Last Filed: 01/06/19 09:13> Date of Encounter: 01/06/19 Time of Encounter: 08:26 Internal Medicine - H&P: HPI Chief complaint: AMS Admitted From: Emergency Dept Plans for Post Hospital Care: Home History of present illness: Ms. Mora is a 28 year old female with unclear past medical history presented to the emergency department with altered mental status. Patient is unable to ca ll recent events and is able to provide only minimal history. There is no family present at bedside. Per ER documentation, patient did arrive via EMS and had concerns that she had been injecting "fake "methamphetamines. Patient states that she is unable to remember preceding events however it does admit to a headache, feeling warm, sweating profusely. Remainder of review of systems essentially not obtainable. In the emergency room, vital signs are significant for heart rate of 101 and she was febrile at 100.6 later in her stay. Blood pressure stable and she was tolerating 97% oxygen on room air. Laboratory results showed no evidence of leukocytosis but did show a potassium 2.8, total bilirubin 2.3 with direct predominance, mildly elevated LFTs, creatinine kinase of 500 and a urinalysis which shows high specific gravity, minimal protein, nitrates, bilirubin, leukocyte esterase, white and red blood cells as well as hyalin casts and urine mucus. Urine test was negative. Urine drug screen was positive for opiates and amphetamines. Hepatitis panel was positive for hep C antibody. Patient states that she has been told this in the past, But has not received treatment. CT scan was obtained emergency department of the abdomen and pelvis which showed nonspecific fat stranding surrounding both adrenal glands, nonobstructing right-sided nephrolithiasis. Head CT was negative for acute process. Chest CTA showed no evidence of pulmonary embolism and no acute pulmonary edema. Patient was given 2 mg of Narcan in the emergency room as well as 2L fluids with minimal improvement of her somnolence. She was also given 20 mEq potassium. At time of interview, patient is minimally responsive. She does answer questions however does appear confused and stares around the room. She is able to state that she has not [facility] and is aware that the years 2019. She remains unaware of her recent history. Past medical history: Patient denies. Per chart review there is questionable psychiatric history including psychosis Past surgical history: Unclear Social history: Known IV drug use with methamphetamines. Patient previously states she did use other drugs as well. She is unwilling to elaborate. Smokes approximately one half pack per day and admits to former heavy alcohol use. Family history: Unknown Past Med Surg Social Fam HX - Past Medical History Medical history: no medical history - Social History Smoking Status: Current every day smoker Drug use: methamphetamine, IV Drug Use Internal Medicine - H&P: Meds No Known Home Drugs 01/06/19 [History] Allergy/AdvReac Type Severity Reaction Status Date / Time No Known Allergies Allergy Verified 01/06/19 08:04 ROS unobtainable: due to mental status All Systems PM: A 10-system review of systems was performed and is negative for pertinent findings except as documented above in the HPI. - Constitutional Vitals: Temp Pulse Resp BP Pulse Ox 99.6 F 92 16 97/63 98 01/06/19 06:18 01/06/19 06:18 01/06/19 06:18 01/06/19 06:18 01/06/19 06:18 Exam: Gen.: Vitals noted. No acute distress. AAOx3, Appears confused and somnolent. Short attention span. Appears unkempt and disheveled. HEENT: PERRL/EOMI, oropharynx clear, Normocephalic, atraumatic,Dry mucus membranes, poor dentition. Cardiac: Mildly irregular rhythm, tachycardic, no murmur, +S1/S2, No BLE edema Pulmonary: CTA bilaterally, no wheezes, rales or rhonchi, equal chest expansion, unlabored breathing Abdomen: soft, nontender, BS noted, no guarding, no palpable HSM Back: Nontender throughout. Skin: warm and dry, track reece in LUE, multiple small abrasions. MSK: ROM not assessed, no joint swelling noted, gait no assessed while in bed. Non tender calf or clubbing Neuro: A&Ox3, moves all extremities, no focal deficits, sensation intact, CN grossly intact. Psych: Appears confused and looks around the room often. Poor eye contact. Answers some questions Internal Med - H&P Results - Labs CBC & Chem 7: 01/06/19 02:28 01/06/19 02:28 Labs: Short CBC 01/06/19 Range/Units 02:28 WBC 11.0 (4.3-11.1) K/mcL Hgb 12.6 (11.5-15.4) g/dL Hct 37.9 (35.3-44.9) % Plt Count 233 (140-400) K/mcL Neutrophils # 10.4 H (1.6-8.9) K/mcL BMP 01/06/19 02:28 Sodium 141 Potassium 2.8 L Chloride 108 H Carbon Dioxide 24 BUN 11 Creatinine 0.83 Glucose 97 Calcium 8.9 Liver Function 01/06/19 Range/Units 02:28 Total Bilirubin 2.3 H (0.3-1.0) mg/dL Direct Bilirubin 1.5 H (0.0-0.2) mg/dL AST 67 H (13-39) Units/L ALT 67 H (7-52) Units/L Alkaline Phosphatase 143 H (34-104) Units/L Albumin 3.6 (3.5-5.7) g/dL Urine 01/06/19 Range/Units 00:26 Urine Color Kathy A (Yellow) Urine Clarity Cloudy A (Clear) Urine pH 6.0 (5.0-8.0) pH Units Ur Specific [place] 1.027 H (1.010-1.025) Urine Protein 100 H (Neg-Trace) mg/dL Urine Glucose (UA) Normal (Normal) mg/dL - Impressions ITS Impressions Abdomen/Pelvis CT 01/06/19 01:21 IMPRESSION: There is nonspecific fat stranding surrounding both adrenal glands. Nonobstructing right-sided nephrolithiasis. D/ / Keena Yu MD / Keena Yu MD Interpreting Provider: Keena Yu MD Chest CTA 01/06/19 01:21 IMPRESSION: No evidence of pulmonary embolism or acute pulmonary abnormality. D/ / Keena Yu MD / Keena Yu MD Interpreting Provider: Keena Yu MD Head CT 08/20/19 01:21 IMPRESSION: No acute intracranial abnormality. D/ / Keena Yu MD / Keena Yu MD Interpreting Provider: Keena Yu MD - Assessment and Plan (1) Sepsis Current Visit: Yes Status: Acute Assessment and plan: - Patient meets 3/4 SIRS criteria with HR 110s, Temp max 100.6, RR 22 - WBC of 11.0 with LA 1.6 - Suspected etiology is UTI vs non infectious secondary to IVDU - Organism unclear - Alternatively, patient is at risk for endocarditis however currently only meeting 2 minor [place] criteria - No evidence of end organ or immunologic damage - Cannot appreciate murmur to suspect endocarditis at this time - UA does show possible infection - Imaging in ED showed no infectious process in chest, normal CT head. - CT of the abd/pelvis shows non specific adrenal stranding bilaterally - Urine and blood cultures ordered and incubating - Patient given 2 L NS bolus and rocephin in ED Plan - Continue Rocephin 1g Daily, Day #1 - Monitor cultures - If patient clinically does not improve or if blood cultures are positive consider broadening abx and echocardiogram. Qualifiers: Sepsis type: sepsis due to unspecified organism Sepsis acute organ dysfunction status: without acute organ dysfunction Qualified Code(s): A41.9 - Sepsis, unspecified organism (2) UTI (urinary tract infection) Current Visit: Yes Status: Acute Assessment and plan: as above Qualifiers: Urinary tract infection type: site unspecified Hematuria presence: without hematuria Qualified Code(s): N39.0 - Urinary tract infection, site not specified (3) IVDU (intravenous drug user) Current Visit: Yes Status: Acute Assessment and plan: - Known history - Patient admits to current meth and former cocaine abuse - UDS shows positive opioates and amphetamines - Patient's family has been contacted by nursing stating that there may be underlying psychiatric disorder but patient continues to appear intoxicated during interview - Will correct underlying issues with supportive care for intoxication as well as abx for sepsis - May benefit from psychiatry later in admission after other metabolic causes have improved. (4) Elevated CK Current Visit: Yes Status: Acute Assessment and plan: - CK in 500s in ED - Likely combination of IVDU and dehydration resulting in mild rhabdomyolysis - Will give fluids as above - No evidence of kidney dysfunction at this time and no blood in her urinalysis to suspect myoglobin deposition - Continue aggressive fluids (5) Hepatitis C Current Visit: Yes Status: Chronic Assessment and plan: - Patient does admit to history without treatment - Mild transaminitis does not support acute hepatic failure - Patient advised that hepatitis C does have medical treatments if she is willing to stop her drug use Qualifiers: Viral hepatitis chronicity: chronic Hepatic coma status: without hepatic coma Qualified Code(s): B18.2 - Chronic viral hepatitis C (6) Hypokalemia Current Visit: Yes Status: Acute Assessment and plan: K of 2.8 in ED, magnesium pending - Given 20 mEq in ED, will give additional 40 and replace mag if needed - Etiology is likely poor oral intake from IVDU and AMS state (7) DVT prophylaxis Current Visit: Yes Status: Acute Assessment and plan: subcutaneous heparin - Time Spent With Patient Total time spent is greater than 50% in coordination of care (as documented) at patient's floor/unit and/or counseling patient: <Mannie Daily - Last Filed: 01/06/19 10:28> Date of Encounter: 01/06/19 Internal Medicine - H&P: HPI History of present illness: Ms. Mora is a 28 year old female All Systems PM: A 10-system review of systems was performed and is negative for pertinent findings except as documented above in the HPI. - Constitutional Vitals: Temp Pulse Resp BP Pulse Ox 99.6 F 92 16 97/63 98 01/06/19 06:18 01/06/19 06:18 01/06/19 06:18 01/06/19 06:18 01/06/19 06:18 Internal Med - H&P Results - Labs CBC & Chem 7: 01/06/19 02:28 01/06/19 02:28 Labs: Short CBC 01/06/19 Range/Units 02:28 WBC 11.0 (4.3-11.1) K/mcL Hgb 12.6 (11.5-15.4) g/dL Hct 37.9 (35.3-44.9) % Plt Count 233 (140-400) K/mcL Neutrophils # 10.4 H (1.6-8.9) K/mcL BMP 01/06/19 02:28 Sodium 141 Potassium 2.8 L Chloride 108 H Carbon Dioxide 24 BUN 11 Creatinine 0.83 Glucose 97 Calcium 8.9 Liver Function 01/06/19 Range/Units 02:28 Total Bilirubin 2.3 H (0.3-1.0) mg/dL Direct Bilirubin 1.5 H (0.0-0.2) mg/dL AST 67 H (13-39) Units/L ALT 67 H (7-52) Units/L Alkaline Phosphatase 143 H (34-104) Units/L Albumin 3.6 (3.5-5.7) g/dL Urine 01/06/19 Range/Units 00:26 Urine Color Kathy A (Yellow) Urine Clarity Cloudy A (Clear) Urine pH 6.0 (5.0-8.0) pH Units Ur Specific [place] 1.027 H (1.010-1.025) Urine Protein 100 H (Neg-Trace) mg/dL Urine Glucose (UA) Normal (Normal) mg/dL - Impressions ITS Impressions Abdomen/Pelvis CT 01/06/19 01:21 IMPRESSION: There is nonspecific fat stranding surrounding both adrenal glands. Nonobstructing right-sided nephrolithiasis. D/ / Keena Yu MD / Keena Yu MD Interpreting Provider: Keena Yu MD Chest CTA 01/06/19 01:21 IMPRESSION: No evidence of pulmonary embolism or acute pulmonary abnormality. D/ / Keena Yu MD / Keena Yu MD Interpreting Provider: Keena Yu MD Head CT 01/06/19 01:21 IMPRESSION: No acute intracranial abnormality. D/ / Keena Yu MD / Keena Yu MD Interpreting Provider: Keena Yu MD - Assessment and Plan (1) UTI (urinary tract infection) Current Visit: Yes Status: Acute Qualifiers: Urinary tract infection type: acute cystitis Hematuria presence: without hematuria Qualified Code(s): N30.00 - Acute cystitis without hematuria (2) IVDU (intravenous drug user) Current Visit: Yes Status: Acute (3) Elevated CK Current Visit: Yes Status: Acute (4) Hypokalemia Current Visit: Yes Status: Acute (5) Sepsis Current Visit: Yes Status: Acute Qualifiers: Sepsis type: sepsis due to unspecified organism Sepsis acute organ dysfunction status: without acute organ dysfunction Qualified Code(s): A41.9 - Sepsis, unspecified organism (6) Hepatitis C Current Visit: Yes Status: Chronic Qualifiers: Viral hepatitis chronicity: chronic Hepatic coma status: without hepatic coma Qualified Code(s): B18.2 - Chronic viral hepatitis C - Time Spent With Patient Total time spent is greater than 50% in coordination of care (as documented) at patient's floor/unit and/or counseling patient: - Attending Attestation I examined this patient and my medical decision-making was reviewed with the Resident Physician on 01/06/19. I agree with the documented findings, disposition and treatment plan as described except to the extent set forth below. Ms Mora is 28 y/o female with hx of methamphetamine use presented to ED with unresponsive. At this time she is arousable but confused. Exam: Arouses to name. Mucus membranes dry. NC. EOMI. Neck supple. Heart reg and tachy. no wheeze. Abd soft and diffusely tender without peritoneal signs. No edema. Moves all extremities. Multiple needle reece on extremities. Plan: place in observation. IV fluids and IV abx for UTI. Supportive care.
[2019-01-06] MEDS ORDERED: cefTRIAXone 1,000 MG in Water for inj. (sterile) 10 ML IVP SCH (09:00)
[2019-01-06 09:43] LABS: Magnesium 1.9 mg/dL (1.6-2.6)
--- NOTE | 2019-01-06 10:11 | Event Note ---
<Tommy Hargrove - Last Filed: 01/06/19 10:09> Date of Encounter: 01/06/19 Time of Encounter: 10:09 Notified by nursing that patient has eloped from Hospital and has left against medical advise. Patient reportedly disabled her bed alarm and walked out the door. Security is aware. I was unable to discuss the risks for leaving AMA with the patient prior to departure. <Mannie Daily - Last Filed: 01/06/19 10:30> Date of Encounter: 01/06/19 Pt eloped without anyone talking with her.
[2019-01-06] MEDS ORDERED: Piperacillin/Tazobactam 3.375 GM in 0.9 % Sodium Chloride Mini Bag 100 ML IVPB SCH (16:00)
[2019-01-06] MEDS ORDERED: *HR* Heparin 5,000 UNIT/ML VIAL SQ SCH (18:00)
--- NOTE | 2019-01-07 08:50 | Electrocardiograph Report ---
[place] [facility] Test Date: 2019-01-06 Pat Name: Malena Mora Department: EXAM1 Room: [facility] Gender: F Network/Telecom Engineer: : [id number] Requested By: Amada Samayoa Order Number: [id number] Reading MD: Gilberto Hairston Measurements Intervals [place] Rate: 116 P: 58 [place]: 129 QRS: 57 QRSD: 92 T: -63 QT: 292 QTc: 406 Interpretive Statements Sinus tachycardia Nonspecific repol abnormality, diffuse leads Electronically Signed On 01-07-2019 8:48:29 EDT by Gilberto Hairston
== END 2019-01-06 11:09 | disposition left against medical advice (07) ==
LOC: EMEROOARM 22:04 → 2ANU 22:04 → MERGE 01-06 05:31 → SUATTDRO 01-06 05:31 → EDBD 01-06 05:31 → 2ANU 01-06 05:57
PROVIDERS: ADMIT Internal Medicine; ATTEND Internal Medicine